=== PATIENT | male | born 1995 ===

== ENCOUNTER 2025-05-16 21:36 | Outpatient (REF) | payer SELFPAY ==
[2025-05-16 21:55] LABS: HCT 43.9 % (40.0-50.0); HGB 14.4 g/dL (13.5-17.5); MCH 29.9 pg (27.0-33.0); MCHC 32.8 % (32.0-36.0); MCV 91 fL (80-95); MPV 10.9 fL (8.0-11.0); Platelet Count 326 10^3/uL (130-400); RBC 4.82 10^6/uL (4.36-5.78); RDW 12.0 % (11.8-14.1); RDW-SD 39.9 fL; WBC 9.57 10^3/uL (4.4-10.8)
[2025-05-16 22:10] LABS: ALT 21 U/L (10-49); AST 26 U/L (<34); Albumin 5.1 g/dL (3.4-5.0); Alkaline Phosphatase 80 U/L (46-116); Anion Gap 3.8 mmol/L (3-11); BUN 11 mg/dL (9-23); Bilirubin, Total 0.40 mg/dL (0.2-1.2); CO2 29.2 mmol/L (20.0-31.0); Calcium 9.7 mg/dL (8.3-10.6); Chloride 107 mmol/L (98-107); Cholesterol 209 mg/dL (<200); Glucose 85 mg/dL (74-106); HDL Cholesterol 43 mg/dL (>40); Potassium 4.1 mmol/L (3.5-5.1); Sodium 140 mmol/L (136-145); Total Protein 7.9 g/dL (5.7-8.2)
[2025-05-16 22:25] LABS: Hemoglobin A1C 5.2 % (<5.7)
== END 2025-05-16 21:37 | disposition home or self-care (01) ==
LOC: NCHCN 21:36
DX: Z00.00 Encounter for general adult medical examination without abnormal findings (principal)
CPT/HCPCS: 80053; 80061; 85027; 83036